=== PATIENT | female | born 1970 | race Caucasian/White ===

== ENCOUNTER 2019-05-21 08:15 | Day surgery (SDC) | payer BC ==
[~2019-05-21] VITALS: Ht 167.6 cm; Wt 63.9 kg
[2019-05-21 08:51] VITALS: BP 120/82
== END 2019-05-21 16:40 | disposition home or self-care (01) ==
LOC: OUT 08:15
PROVIDERS: ATTEND Specialist
DX: D25.9 Leiomyoma of uterus, unspecified (principal); N80.3 Endometriosis of pelvic peritoneum; N80.0 Endometriosis of uterus; N88.2 Stricture and stenosis of cervix uteri; N88.8 Other specified noninflammatory disorders of cervix uteri; N83.00 Follicular cyst of ovary, unspecified side; N73.6 Female pelvic peritoneal adhesions (postinfective); J45.909 Unspecified asthma, uncomplicated; F17.210 Nicotine dependence, cigarettes, uncomplicated; Z72.89 Other problems related to lifestyle; Z79.899 Other long term (current) drug therapy; Z88.0 Allergy status to penicillin; Z88.2 Allergy status to sulfonamides; Z91.030 Bee allergy status; Z80.51 Family history of malignant neoplasm of kidney; Z80.3 Family history of malignant neoplasm of breast; Z80.8 Family history of malignant neoplasm of other organs or systems
CPT/HCPCS: 58573; 81025; 87086; 88307; J0330; J0690; J1050; J1100; J2250; J2405; J2704; J2710; J3010; J3490; J7120; S2900